=== PATIENT | female | born 1995 | race Caucasian/White ===

== ENCOUNTER 2021-03-12 16:56 | Emergency (ER) | payer OTHER ==
[~2021-03-12] VITALS: Ht 147.3 cm; Wt 85.7 kg
[2021-03-12] MEDS ORDERED: BCP PO (17:19)
[2021-03-12] MEDS ORDERED: IRON325T2 PO (17:19)
[2021-03-12] MEDS ORDERED: NOXI1TAB PO (17:19)
[2021-03-12] MEDS ORDERED: LEXA5TAB13 PO (17:19)
[2021-03-12] MEDS ORDERED: TETRACAINE 0.5% OPHTH SOLN 4ML OU ONE (17:50)
[2021-03-12] MEDS ORDERED: FLUORESCEIN OPHTH 1 MG STRIP OU ONE (17:50)
[2021-03-12 19:21] VITALS: BP 117/72
== END 2021-03-12 19:23 | disposition home or self-care (01) ==
LOC: M ED 16:56
DX: H53.8 Other visual disturbances (principal); Q96.9 Turner's syndrome, unspecified; Z79.899 Other long term (current) drug therapy; Z88.0 Allergy status to penicillin

== ENCOUNTER → 2021-07-12 | Outpatient (REF) | payer OTHER ==
[~2021-07-12] MED LIST: BCP PO; IRON325T2 PO; LEXA5TAB13 PO; NOXI1TAB PO
[2021-07-12 13:46] LABS: GC DNA AMPLIFICATION NEGATIVE (NEGATIVE)
== END ==
LOC: M WUC 11:56
PROVIDERS: ATTEND Physician Assistant
DX: R30.0 Dysuria (principal)

== ENCOUNTER 2021-07-20 19:12 | Emergency (ER) | payer OTHER ==
[~2021-07-20] VITALS: Ht 149.9 cm; Wt 84.1 kg
[2021-07-20 19:12] VITALS: BP 141/85
[2021-07-20] MEDS ORDERED: KETOROLAC 60MG 2ML VIAL IM ONE (21:00)
[2021-07-20 21:33] LABS: BASO # 0.1 10^3/uL (0.0-0.2); BASO % 0.7 % (0.0-1.0); EOS # 0.2 10^3/uL (0.0-0.5); HEMATOCRIT 43.4 % (36.0-47.0); HEMOGLOBIN 14.9 g/dl (12.0-15.5); LYMPH # 3.6 10^3/uL (1.5-5.0); LYMPH % 29.4 % (24.0-44.0); MEAN CORPUSCULAR HEMOGLOBIN 31.2 pg (27.0-33.0); MEAN CORPUSCULAR HGB CONC 34.3 g/dl (32.0-36.5); MONO # 0.8 10^3/uL (0.0-0.8); MONO % 6.3 % (2.0-8.0); NEUTROPHILS # 7.3 10^3/uL (1.5-8.5); NEUTROPHILS % 60.7 % (36.0-66.0); PLATELET COUNT, AUTOMATED 368 10^3/uL (150-450); RED BLOOD COUNT 4.77 10^6/uL (4.00-5.40); WHITE BLOOD COUNT 12.1 10^3/uL (4.0-10.0)
[2021-07-20 21:45] LABS: BLOOD UREA NITROGEN 9 MG/DL (7-18); CALCIUM LEVEL 9.8 MG/DL (8.5-10.1); CARBON DIOXIDE LEVEL 26 MEQ/L (21-32); CHLORIDE LEVEL 110 MEQ/L (98-107); CREATININE FOR GFR 0.68 MG/DL (0.55-1.30); GLOMERULAR FILTRATION RATE > 60.0 (>60); GLUCOSE, FASTING 113 MG/DL (70-100); POTASSIUM SERUM 3.9 MEQ/L (3.5-5.1); SODIUM LEVEL 142 MEQ/L (136-145)
[2021-07-20 21:52] LABS: ERYTHROCYTE SEDIMENTATION RATE 17 mm/hr (0-20)
== END 2021-07-20 23:32 | disposition home or self-care (01) ==
LOC: M ED 19:12
DX: G89.18 Other acute postprocedural pain (principal); M54.9 Dorsalgia, unspecified; Q96.9 Turner's syndrome, unspecified; Z79.899 Other long term (current) drug therapy; Z88.0 Allergy status to penicillin
CPT/HCPCS: 36415; 76830; 76856; 80048; 81001; 85025; 85652; 86140; 87086; 93976; 96372; 99282; J1885

== ENCOUNTER → 2021-08-18 | Outpatient (REF) | payer OTHER ==
[~2021-08-18] MED LIST changes: +METR-265; +NITR100C2
== END ==
LOC: M WUC 18:08
PROVIDERS: ATTEND Physician Assistant
DX: N39.0 Urinary tract infection, site not specified (principal)

== ENCOUNTER 2021-08-20 19:54 | Emergency (ER) | payer OTHER ==
[~2021-08-20] VITALS: Ht 147.3 cm; Wt 81.8 kg
[~2021-08-20 19:54] MED LIST changes: -METR-265; -NITR100C2
[2021-08-20] MEDS ORDERED: NAPROXEN 250 MG TAB PO ONE (21:35)
[2021-08-20] MEDS ORDERED: ONDANSETRON 4MG ORAL DISINTEGRATING TAB PO ONE (21:35)
[2021-08-20 22:06] LABS: BASO # 0.1 10^3/uL (0.0-0.2); BASO % 0.4 % (0.0-1.0); EOS # 0.1 10^3/uL (0.0-0.5); EOS % 0.4 % (0.0-3.0); HEMATOCRIT 37.3 % (36.0-47.0); HEMOGLOBIN 12.8 g/dl (12.0-15.5); LYMPH # 1.6 10^3/uL (1.5-5.0); LYMPH % 10.6 % (24.0-44.0); MEAN CORPUSCULAR HEMOGLOBIN 31.5 pg (27.0-33.0); MEAN CORPUSCULAR HGB CONC 34.3 g/dl (32.0-36.5); MEAN CORPUSCULAR VOLUME 91.9 fl (80.0-96.0); MONO # 0.5 10^3/uL (0.0-0.8); MONO % 3.5 % (2.0-8.0); NEUTROPHILS # 12.5 10^3/uL (1.5-8.5); NEUTROPHILS % 84.4 % (36.0-66.0); PLATELET COUNT, AUTOMATED 335 10^3/uL (150-450); RED BLOOD COUNT 4.06 10^6/uL (4.00-5.40); WHITE BLOOD COUNT 14.8 10^3/uL (4.0-10.0)
[2021-08-20 22:23] LABS: ERYTHROCYTE SEDIMENTATION RATE 41 mm/hr (0-20)
[2021-08-20] MEDS ORDERED: METR-265 (22:27)
[2021-08-20] MEDS ORDERED: NITR100C2 (22:27)
[2021-08-20] MEDS ORDERED: ISOVUE-370 76% 100ML VIAL As Ordered ONE (23:25)
[2021-08-21 01:48] VITALS: BP 126/69
== END 2021-08-21 02:39 | disposition home or self-care (01) ==
LOC: M ED 19:54
DX: R51.9 Headache, unspecified (principal); H01.8 Other specified inflammations of eyelid; R10.9 Unspecified abdominal pain; K76.0 Fatty (change of) liver, not elsewhere classified; Q96.9 Turner's syndrome, unspecified; Z79.899 Other long term (current) drug therapy; Z88.0 Allergy status to penicillin
CPT/HCPCS: 36415; 74177; 80047; 81001; 83605; 84702; 85025; 85652; 86140; 87086; 87798; 99284; Q9967

== ENCOUNTER → 2021-08-23 | Outpatient (CLI) | payer OTHER ==
[~2021-08-23] MED LIST changes: +METR-265; +NITR100C2
[2021-08-23 13:22] LABS: FREE THYROXINE INDEX 4.3 % (1.3-4.8); RHEUMATOID FACTOR QUANT < 10.0 IU/ML (<15.0); T UPTAKE 30 % (30-39); THYROXINE (T4) 14.4 UG/DL (4.5-12.0); TOTAL PROTEIN 6.8 GM/DL (6.4-8.2)
[2021-08-23 13:28] LABS: FOLATE > 24.0 NG/ML
[2021-08-23 13:39] LABS: VITAMIN B12 LEVEL 348 PG/ML
[2021-08-23 14:07] LABS: HEMOGLOBIN A1c 5.4 %
== END ==
LOC: M PLALAB 10:00
PROVIDERS: ATTEND Psychiatry & Neurology Neurology
DX: E07.9 Disorder of thyroid, unspecified (principal); E11.40 Type 2 diabetes mellitus with diabetic neuropathy, unspecified

== ENCOUNTER → 2021-09-30 | Outpatient (CLI) | payer OTHER | LOC: M WHC 15:09 | PROVIDERS: ATTEND Internal Medicine Endocrinology, Diabetes & Metabolism | DX: Q96.9 Turner's syndrome, unspecified ==

== ENCOUNTER → 2021-10-30 | Outpatient (CLI) | payer OTHER ==
[~2021-10-30] MED LIST changes: +PROHANCE 279.3MG/ML 15ML VIAL As Ordered ONE; +PROHANCE 279.3MG/ML 5ML VIAL As Ordered ONE
== END ==
LOC: M RAD 17:25
PROVIDERS: ATTEND Obstetrics & Gynecology
DX: R10.2 Pelvic and perineal pain (principal); Q96.9 Turner's syndrome, unspecified; N28.1 Cyst of kidney, acquired
CPT/HCPCS: 72197; 74183; A9576

== ENCOUNTER → 2021-12-12 | Outpatient (CLI) | payer OTHER ==
[~2021-12-12] MED LIST changes: -PROHANCE 279.3MG/ML 15ML VIAL As Ordered ONE; -PROHANCE 279.3MG/ML 5ML VIAL As Ordered ONE
== END ==
LOC: M WHC 06:47
PROVIDERS: ATTEND Obstetrics & Gynecology
DX: N64.4 Mastodynia (principal); Z80.3 Family history of malignant neoplasm of breast

== ENCOUNTER → 2022-01-21 | Outpatient (REF) | payer OTHER ==
[2022-01-21 12:19] LABS: APPEARANCE, URINE MANUAL CLEAR (CLEAR); COLOR, URINE MANUAL LT YELLOW (YELLOW)
[2022-01-21 12:20] LABS: SPECIFIC GRAVITY,URINE MANUAL 1.005 (1.002-1.035)
[2022-01-21 12:21] LABS: BILIRUBIN, URINE MANUAL NEGATIVE (NEGATIVE); BLOOD URINE MANUAL NEGATIVE (NEGATIVE); GLUCOSE, URINE (UA) MANUAL NEGATIVE (NEGATIVE); KETONE, URINE MANUAL NEGATIVE (NEGATIVE); LEUKOCYTE ESTERASE, URINE MAN NEGATIVE (NEGATIVE); NITRITE, URINE MANUAL NEGATIVE (NEGATIVE); PROTEIN, URINE MANUAL NEGATIVE (NEGATIVE); UROBILINOGEN, URINE MANUAL NORMAL (NORMAL)
[2022-01-21 12:26] LABS: BASO # 0.1 10^3/uL (0.0-0.2); BASO % 0.6 % (0.0-1.0); EOS # 0.2 10^3/uL (0.0-0.5); EOS % 1.7 % (0.0-3.0); HEMATOCRIT 39.4 % (36.0-47.0); HEMOGLOBIN 13.5 g/dl (12.0-15.5); LYMPH # 1.7 10^3/uL (1.5-5.0); LYMPH % 18.1 % (24.0-44.0); MEAN CORPUSCULAR HEMOGLOBIN 31.9 pg (27.0-33.0); MEAN CORPUSCULAR HGB CONC 34.3 g/dl (32.0-36.5); MEAN CORPUSCULAR VOLUME 93.1 fl (80.0-96.0); MONO # 0.6 10^3/uL (0.0-0.8); MONO % 5.9 % (2.0-8.0); NEUTROPHILS # 6.7 10^3/uL (1.5-8.5); NEUTROPHILS % 72.3 % (36.0-66.0); PLATELET COUNT, AUTOMATED 355 10^3/uL (150-450); RED BLOOD COUNT 4.23 10^6/uL (4.00-5.40); WHITE BLOOD COUNT 9.3 10^3/uL (4.0-10.0)
[2022-01-21 12:50] LABS: ERYTHROCYTE SEDIMENTATION RATE 32 mm/hr (0-20)
[2022-01-21 12:59] LABS: CREATININE,RANDOM URINE < 13.0 MG/DL; TOTAL PROTEIN,RANDOM URINE < 5.0 MG/DL (0.0-12.0)
[2022-01-21 13:01] LABS: ALBUMIN 3.7 GM/DL (3.2-5.2); ALT/SGPT 62 U/L (12-78); BILIRUBIN,DIRECT < 0.1 MG/DL (0.0-0.2); BILIRUBIN,TOTAL 0.4 MG/DL (0.2-1.0); BLOOD UREA NITROGEN 7 MG/DL (7-18); C REACTIVE PROTEIN QUANTITATIV 1.32 MG/DL (0.00-0.30); CALCIUM LEVEL 9.6 MG/DL (8.5-10.1); CARBON DIOXIDE LEVEL 27 MEQ/L (21-32); CHLORIDE LEVEL 103 MEQ/L (98-107); COMPLEMENT C3 164 MG/DL (90-180); COMPLEMENT C4 37 MG/DL (10-40); CREATININE FOR GFR 0.49 MG/DL (0.55-1.30); GLOMERULAR FILTRATION RATE > 60.0 (>60); GLUCOSE, FASTING 87 MG/DL (70-100); IMMUNOGLOBULIN G 720 MG/DL (681-1648); IRON (FE) 74 UG/DL (50-170); MAGNESIUM LEVEL 2.2 MG/DL (1.8-2.4); PHOSPHORUS LEVEL 3.5 MG/DL (2.5-4.9); POTASSIUM SERUM 4.2 MEQ/L (3.5-5.1); SODIUM LEVEL 134 MEQ/L (136-145)
[2022-01-21 13:24] LABS: HEPATITIS B SURFACE ANTIBODY NEGATIVE (POSITIVE); VITAMIN B12 LEVEL 668 PG/ML (247-911)
[2022-01-21 13:37] LABS: HEPATITIS B SURFACE ANTIGEN NEGATIVE (NEGATIVE)
[2022-01-21 14:03] LABS: HEPATITIS C VIRUS ABY INDEX < 0.0 INDEX (<0.8)
[2022-01-22 14:08] LABS: COMPLEMENT TOTAL (CH50) > 60 U/mL (>41); HEPATITIS B CORE ANTIBODY IGG Negative (Negative)
[2022-01-27 14:19] LABS: ALBUMIN 4.19 GM/DL (3.29-5.55); ALBUMIN % 59.9 % (55.8-66.1); ALPHA-1-GLOBULIN % 4.1 % (2.9-4.9); ALPHA-1-GLOBULINS 0.29 GM/DL (0.17-0.41); ALPHA-2-GLOBULINS 0.95 GM/DL (0.42-0.99); ALPHA-2-GLOBULINS % 13.6 % (7.1-11.8); BETA-1-GLOBULINS 0.44 GM/DL (0.28-0.60); BETA-1-GLOBULINS % 6.3 % (4.7-7.2); BETA-2-GLOBULINS 0.37 GM/DL (0.19-0.55); BETA-2-GLOBULINS % 5.3 % (3.2-6.5); GAMMA GLOBULIN % 10.8 % (11.1-18.8); GAMMA GLOBULINS 0.76 GM/DL (0.65-1.58)
== END ==
LOC: M SFHCRHEU 08:31
PROVIDERS: ATTEND Internal Medicine
DX: R76.8 Other specified abnormal immunological findings in serum (principal); M79.10 Myalgia, unspecified site

== ENCOUNTER → 2022-01-21 | Outpatient (CLI) | payer OTHER | LOC: M PLAIMG 09:30 | PROVIDERS: ATTEND Internal Medicine | DX: M25.40 Effusion, unspecified joint (principal) ==

== ENCOUNTER → 2022-05-09 | Outpatient (CLI) | payer OTHER ==
[~2022-05-09] MED LIST changes: +ESTROGENS CONJUGATED VG; +PREN1TAB11 PO; +RA K500C PO; +[UNRECOGNIZED DRUG - CODE] TD; +vitamin D PO
[2022-05-09 15:24] LABS: BASO % 0.4 % (0.0-1.0); EOS # 0.2 10^3/uL (0.0-0.5); EOS % 1.6 % (0.0-3.0); HEMATOCRIT 39.6 % (36.0-47.0); HEMOGLOBIN 13.1 g/dl (12.0-15.5); LYMPH # 1.9 10^3/uL (1.5-5.0); LYMPH % 20.3 % (24.0-44.0); MEAN CORPUSCULAR HEMOGLOBIN 31.3 pg (27.0-33.0); MEAN CORPUSCULAR HGB CONC 33.1 g/dl (32.0-36.5); MEAN CORPUSCULAR VOLUME 94.5 fl (80.0-96.0); MONO # 0.5 10^3/uL (0.0-0.8); MONO % 5.6 % (2.0-8.0); NEUTROPHILS # 6.5 10^3/uL (1.5-8.5); NEUTROPHILS % 71.1 % (36.0-66.0); PLATELET COUNT, AUTOMATED 372 10^3/uL (150-450); RED BLOOD COUNT 4.19 10^6/uL (4.00-5.40); WHITE BLOOD COUNT 9.1 10^3/uL (4.0-10.0)
[2022-05-09 15:33] LABS: INR 0.89; PARTIAL THROMBOPLASTIN TIME 30.3 SECONDS (24.8-34.2); PROTHROMBIN TIME 12.2 SECONDS (12.5-14.5)
== END ==
LOC: M PLALAB 12:42
PROVIDERS: ATTEND Psychiatry & Neurology Neurology
DX: G96.9 Disorder of central nervous system, unspecified (principal)

== ENCOUNTER → 2022-05-16 | Outpatient (CLI) | payer OTHER ==
[~2022-05-16] MED LIST changes: +CITA20TA6 PO; +LIDOCAINE 1% MDV 20ML VIAL As Ordered ONE; +PROG1CAP8 PO
[2022-05-16 10:13] LABS: APPEARANCE, CSF CLEAR (CLEAR); COLOR, CSF COLORLESS (COLORLESS); CSF TUBE# CELL CNT TUBE 1
[2022-05-16 10:16] LABS: CSF TUBE# TP TUBE 1
[2022-05-16 10:19] LABS: CSF TUBE# GLU TUBE 1
[2022-05-16 11:00] VITALS: BP 139/87
== END ==
LOC: M IRPRO 08:17
PROVIDERS: ATTEND Psychiatry & Neurology Neurology
DX: G93.2 Benign intracranial hypertension (principal)

== ENCOUNTER 2022-06-01 17:09 | Observation (INO) | payer OTHER ==
[~2022-06-01] VITALS: Ht 149.9 cm; Wt 82.0 kg
[~2022-06-01 17:09] MED LIST changes: -LIDOCAINE 1% MDV 20ML VIAL As Ordered ONE
[2022-06-01 19:27] LABS: BASO # 0.1 10^3/uL (0.0-0.2); BASO % 0.3 % (0.0-1.0); EOS # 0.1 10^3/uL (0.0-0.5); EOS % 0.2 % (0.0-3.0); HEMATOCRIT 44.5 % (36.0-47.0); HEMOGLOBIN 15.3 g/dl (12.0-15.5); LYMPH # 0.8 10^3/uL (1.5-5.0); MEAN CORPUSCULAR HEMOGLOBIN 31.2 pg (27.0-33.0); MEAN CORPUSCULAR HGB CONC 34.4 g/dl (32.0-36.5); MEAN CORPUSCULAR VOLUME 90.8 fl (80.0-96.0); MONO # 0.6 10^3/uL (0.0-0.8); MONO % 2.4 % (2.0-8.0); NEUTROPHILS # 24.3 10^3/uL (1.5-8.5); NEUTROPHILS % 93.4 % (36.0-66.0); PLATELET COUNT, AUTOMATED 398 10^3/uL (150-450); WHITE BLOOD COUNT 25.9 10^3/uL (4.0-10.0)
[2022-06-01] MEDS ORDERED: KETOROLAC 30 MG/ML 1ML VIAL IV ONE (19:30)
[2022-06-01] MEDS ORDERED: TOPIRAMATE (TopAMAX) 25 MG TAB PO ONE (19:30)
[2022-06-01] MEDS ORDERED: diphenhydrAMINE 50MG/ML VIAL IV ONE (19:30)
[2022-06-01] MEDS ORDERED: METOCLOPRAMIDE INJ 10MG/2ML VIAL IV ONE (19:30)
[2022-06-01] MEDS ORDERED: MAG SULF 1GM/100ML (MAG RUN) 1 GM in IV 1 EA IV ONE (19:30)
[2022-06-01] MEDS ORDERED: ACETAMINOPHEN 500 MG TAB PO ONE (19:30)
[2022-06-01 19:54] LABS: BLOOD UREA NITROGEN 13 MG/DL (9-23); CALCIUM LEVEL 9.6 MG/DL (8.5-10.1); CARBON DIOXIDE LEVEL 16 MMOL/L (20-31); CHLORIDE LEVEL 108 MMOL/L (98-107); CREATININE FOR GFR 0.62 MG/DL (0.55-1.30); GLOMERULAR FILTRATION RATE > 60.0 (>60); GLUCOSE, FASTING 115 MG/DL (60-100); MAGNESIUM LEVEL 2.1 MG/DL (1.8-2.4); POTASSIUM SERUM 4.1 MMOL/L (3.5-5.1); SODIUM LEVEL 138 MMOL/L (136-145)
[2022-06-01 20:04] LABS: RSV AMPLIFICATION NEGATIVE (NEGATIVE)
[2022-06-01 20:13] LABS: THYROID STIMULATING HORMONE 1.303 uIU/ML (0.55-4.78)
[2022-06-01] MEDS ORDERED: NS 1,000 ML IV ONE ×2 (21:05)
[2022-06-01 22:59] LABS: BASO # 0.1 10^3/uL (0.0-0.2); BASO % 0.2 % (0.0-1.0); EOS # 0.1 10^3/uL (0.0-0.5); EOS % 0.4 % (0.0-3.0); HEMATOCRIT 39.6 % (36.0-47.0); HEMOGLOBIN 13.7 g/dl (12.0-15.5); LYMPH % 4.5 % (24.0-44.0); MEAN CORPUSCULAR HEMOGLOBIN 31.4 pg (27.0-33.0); MEAN CORPUSCULAR HGB CONC 34.6 g/dl (32.0-36.5); MEAN CORPUSCULAR VOLUME 90.8 fl (80.0-96.0); MONO # 0.4 10^3/uL (0.0-0.8); MONO % 2.1 % (2.0-8.0); NEUTROPHILS # 19.2 10^3/uL (1.5-8.5); NEUTROPHILS % 91.9 % (36.0-66.0); PLATELET COUNT, AUTOMATED 379 10^3/uL (150-450); RED BLOOD COUNT 4.36 10^6/uL (4.00-5.40); WHITE BLOOD COUNT 20.9 10^3/uL (4.0-10.0)
[2022-06-01 23:29] LABS: BLOOD UREA NITROGEN 12 MG/DL (9-23); CALCIUM LEVEL 8.8 MG/DL (8.5-10.1); CARBON DIOXIDE LEVEL 19 MMOL/L (20-31); CHLORIDE LEVEL 109 MMOL/L (98-107); CREATININE FOR GFR 0.62 MG/DL (0.55-1.30); GLOMERULAR FILTRATION RATE > 60.0 (>60); GLUCOSE, FASTING 104 MG/DL (60-100); POTASSIUM SERUM 3.7 MMOL/L (3.5-5.1); SODIUM LEVEL 139 MMOL/L (136-145)
[2022-06-01] MEDS ORDERED: ACET250T2 PO (23:55)
[2022-06-02] MEDS ORDERED: HOME MED LIST COMPLETE! XX SCH
[2022-06-02] MEDS ORDERED: ACETAMINOPHEN TAB 650MG DOSE (2X325MG) PO PRN (01:05)
[2022-06-02 02:35] VITALS: BP 131/83
[2022-06-02 06:00] VITALS: BP_SYST 130; BP_SYST 133; BP_DIAS 80
[2022-06-02 06:21] VITALS: BP_SYST 124; BP_SYST 125; BP_SYST 128; BP_DIAS 69; BP_DIAS 71; BP_DIAS 90
[2022-06-02] MEDS ORDERED: ISOVUE-370 76% 100ML VIAL As Ordered ONE (09:27)
[2022-06-02] MEDS: LR 1,000 ML IV SCH ×2 (09:29→21:05)
[2022-06-02] MEDS ORDERED: MECLIZINE 12.5 MG TAB PO PRN (12:35)
[2022-06-02] MEDS: acetaZOLAMIDE 250MG TAB PO SCH ×2 (13:36→21:05)
[2022-06-02 14:00] VITALS: BP 138/86
[2022-06-02] MEDS: FERROUS SULFATE 325MG TAB PO SCH (14:05)
[2022-06-02] MEDS ORDERED: ONDANSETRON 4MG 2ML VIAL IV ONE (14:55)
[2022-06-02] MEDS ORDERED: POLYVINYL ALCOHOL OPHTH SOLN 15ML (LIQUITEARS) OU PRN (19:05)
[2022-06-02] MEDS ORDERED: ENOXAPARIN 40MG/0.4ML SYRINGE (J1650 PER 10MG) SC SCH (21:00)
[2022-06-02 21:05] VITALS: BP 128/82
[2022-06-03 06:16] LABS: HEMATOCRIT 35.9 % (36.0-47.0); HEMOGLOBIN 12.5 g/dl (12.0-15.5); MEAN CORPUSCULAR HEMOGLOBIN 31.7 pg (27.0-33.0); MEAN CORPUSCULAR HGB CONC 34.8 g/dl (32.0-36.5); MEAN CORPUSCULAR VOLUME 91.1 fl (80.0-96.0); PLATELET COUNT, AUTOMATED 297 10^3/uL (150-450); RED BLOOD COUNT 3.94 10^6/uL (4.00-5.40); WHITE BLOOD COUNT 7.9 10^3/uL (4.0-10.0)
[2022-06-03] MEDS: LR 1,000 ML IV SCH (06:21)
[2022-06-03 06:22] VITALS: BP 128/81
[2022-06-03 06:38] LABS: BLOOD UREA NITROGEN 6 MG/DL (9-23); CALCIUM LEVEL 8.5 MG/DL (8.5-10.1); CARBON DIOXIDE LEVEL 21 MMOL/L (20-31); CHLORIDE LEVEL 110 MMOL/L (98-107); GLOMERULAR FILTRATION RATE > 60.0 (>60); GLUCOSE, FASTING 87 MG/DL (60-100); POTASSIUM SERUM 3.7 MMOL/L (3.5-5.1); SODIUM LEVEL 139 MMOL/L (136-145)
[2022-06-03] MEDS ORDERED: ACET250T2 PO (08:36)
[2022-06-03] MEDS ORDERED: MECL-136 PO (08:36)
[2022-06-03] MEDS: FERROUS SULFATE 325MG TAB PO SCH (08:59)
[2022-06-03] MEDS ORDERED: ONDA4TAB6 PO (11:14)
== END 2022-06-03 12:10 | disposition home or self-care (01) ==
LOC: M ED 17:09 → M ED INP 17:10 → M MSPAV 06-02 02:33
PROVIDERS: ADMIT Internal Medicine; ATTEND Internal Medicine
DX: R11.2 Nausea with vomiting, unspecified (principal); R19.7 Diarrhea, unspecified; H81.10 Benign paroxysmal vertigo, unspecified ear; E87.20 Acidosis, unspecified; R30.0 Dysuria; G93.2 Benign intracranial hypertension; Q96.9 Turner's syndrome, unspecified; N92.6 Irregular menstruation, unspecified; D72.829 Elevated white blood cell count, unspecified; N30.10 Interstitial cystitis (chronic) without hematuria; Z87.448 Personal history of other diseases of urinary system; R26.81 Unsteadiness on feet; Z91.81 History of falling; Z88.0 Allergy status to penicillin; Z88.3 Allergy status to other anti-infective agents; Z79.899 Other long term (current) drug therapy; Z79.890 Hormone replacement therapy
CPT/HCPCS: 36415; 74177; 80047; 80048; 81000; 81015; 83735; 84443; 84702; 85025; 85027; 87040; 87507; 87631; 93005; 93041; 96361; 96365; 96375; 97112; 97161; 97165; 99285; J1200; J1885; J2765; J3475

== ENCOUNTER → 2022-07-09 | Outpatient (REF) ==
[~2022-07-09] MED LIST changes: +ACET250T2 PO; +MECL-136 PO; +ONDA4TAB6 PO
== END ==
LOC: M LAB 10:47
PROVIDERS: ATTEND Nurse Practitioner Adult Health
DX: Z02.1 Encounter for pre-employment examination (principal)

== ENCOUNTER → 2022-07-14 | Outpatient (REF) | LOC: EDSTATUS 07:30 → M EMP 07:30 | PROVIDERS: ATTEND Family Medicine | DX: Z11.52 Encounter for screening for COVID-19 (principal) ==

== ENCOUNTER → 2022-07-21 | Outpatient (REF) | LOC: M EMP 08:48 | PROVIDERS: ATTEND Family Medicine | DX: Z00.00 Encounter for general adult medical examination without abnormal findings (principal) ==

== ENCOUNTER → 2022-07-28 | Outpatient (REF) | LOC: M EMP 13:02 | PROVIDERS: ATTEND Family Medicine | DX: Z11.52 Encounter for screening for COVID-19 (principal) ==